=== PATIENT | female | born 1995 | race American Indian/Alaskan Native ===

== ENCOUNTER 2017-03-29 22:03 | Emergency (ER) | payer OTHER ==
[2017-03-29] MEDS ORDERED: TYLENOL PO ONE (22:20)
[2017-03-29] MEDS ORDERED: TYLENOL ONE (22:23)
[2017-03-30 04:48] LABS: HCG Qualitative,Urine Negative (Negative)
[2017-03-30 04:51] LABS: Bilirubin,Urine NEG (Negative); Blood,Urine MOD (Negative); Color,Urine Red (Yellow); Mucus,Urine 1+ /HPF; Nitrite,Urine NEG (Negative); Urobilinogen,Urine < 2.0 mg/dL (<2.0)
[2017-03-30 04:58] LABS: RBC,Urine > 182.0 /HPF (0.0-6.0); WBC,Urine < 1.0 /HPF (0.0-6.0)
--- NOTE | 2017-03-30 10:04 | Emergency Department Report ---
ED Back Pain/Injury HPI - General Chief Complaint: Back Pain/Injury Stated Complaint: BACK PAIN Time Seen by Provider: 03/30/17 08:43 Source: patient, family Limitations: No Limitations - History of Present Illness Initial Comments: Patient here complaining of back pain after lifting heavy object at work. She said the pain is located in her lower back on both sides. She reports that pain is achy and worse with movement better with rest. Denies any history of back problems. Patient says she lifts heavy boxes at work. Denies any urinary burning frequency or urgency. Patient is on her period that she started yesterday. Back pain is 10 out of 10 and a can. Denies any loss of bowel or bladder function. Denies any numbness or tingling to extremities. MD Complaint: back pain, back injury (patient says she has injury from lifting boxes) Onset/Timin -: week(s) Similar Symptoms Previously: No Place: work Radiation: none Severity: severe Severity scale (0 -10): 10 Quality: aching Consistency: constant Improves With: immobilization Worsens With: movement, walking Context: while lifting, bending Associated Symptoms: denies: confusion, weakness, chest pain, numbness, difficulty walking, cough, diaphoresis, incontinence, fever/chills, constipation , headaches, abdominal pain, loss of appetite, nausea/vomiting, rash, seizure, shortness of breath, syncope - Related Data Previous Rx's Medication Instructions Recorded Last Taken Type Cyclobenzaprine [Flexeril] 10 mg PO TID PRN 5 Days #15 tablet 03/30/17 Unknown Rx Ibuprofen [Motrin] 600 mg PO Q8H PRN 5 Days #15 tablet 03/30/17 Unknown Rx Allergies Allergy/AdvReac Type Severity Reaction Status Date / Time No Known Allergies Allergy Verified 02/09/14 16:30 ED Review of Systems ROS: Stated complaint: BACK PAIN Other details as noted in HPI ED Past Medical Hx - Past Medical History Medical history: asthma (childhood asthma) Surgical history: no surgical history Psychiatric history: no pertinent history 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 denies: , post menopausal Family history: no significant family history - Social History Smoking Status: Never Smoker Alcohol use: none Drug use: none ED Back Pain Physical Exam - Exam General: This is a 21-year-old female well-nourished well-developed in no acute distress. Head: Normocephalic, atraumatic, no abrasion, no bruising and no contusion. Eyes: Biateral pupils equal and reactive to light, bilateral EOM intact.. Bilateral conjunctival and sclera without injection, normal accommodation. No nystagmus Neck: Supple, No Cervical adenopathy, full range of motion and no C-spine tenderness. No swelling or tracheal deviation normal reflexes Cardiovascular: S1, S2. Regular rate and rhythm. No murmur. Capillary refill is less then 3 seconds. Lungs: Clear to auscultate bilaterally. No rhonchi, wheezes or rales. No chest wall tenderness. No chest contusion. No bruising to chest. MSK: Strength 5/5 in all extremities. No joint deformity or crepitus. Normal inspection. Full range of motion to all extremities. No laceration, abrasion or ecchymotic area noted. Patient able to fully flex and extend bilateral knees without any difficulties. Bilateral knees nontender to palpate. Abdomen: Non-tender to palpate in all quadrants, no guarding or rebound tenderness, positive bowel sounds in all quadrants. No CVA tenderness. No hernia, bruit or mass. No rigidity or distention. Extremities: No clubbing, cyanosis or edema. +2 pulses. No neurovascular compromise Skin: Clean, dry and intact. No rash or lesions. Neurological: GCS at 15, Pt is alert and oriented 3 speech is clear . Bilateral hand recruitment consultant strong and equal. Normal gait. Negative Romberg and no pronator drift. Normal Reflexes. No motor or sensory deficit Back: No vertebral tenderness, no paraspinal tenderness. The bend over and touch his toes without any difficulties. Ambulates without any difficulties. Negative SLR . Left lumbar spasm. Psych: Normal mood and behavior Back/Abdomen: No Abdominal Tenderness (nontender to palpation in all quadrants, normal bowel sounds in all quadrants. No rigidity or distention. No CVA tenderness.), No Perithoracic Tenderness, No Perilumbar Tenderness (no vertebral tenderness. Patient with spasm to the left lumbar area.), No Sacroiliac Tenderness, No Flank Tenderness, No Straight Leg Raise Pain Neuro: Yes Normal Sensation, Yes Normal Gait, No Motor Weakness, No Normal DTR's ED Course Vital Signs 03/29/17 22:17 Temperature 100.2 F H Pulse Rate 95 H Respiratory 16 Rate Blood Pressure 128/64 O2 Sat by Pulse 96 Oximetry Vital Signs 03/29/17 03/30/17 22:17 10:15 Temperature 100.2 F H 100.1 F H Pulse Rate 95 H 54 L Respiratory 16 16 Rate Blood Pressure 128/64 Blood Pressure 104/55 [Left] O2 Sat by Pulse 96 100 Oximetry - Reevaluation(s) Reevaluation #1: 03/30/17 10:37 Patient given Tylenol 650 mg in triage for back pain. She was given additional Toradol 30 mg IM and Flexeril 10 mg by mouth which relieved her back pain. Ed Back Pain Tests - Tests Tests: Abnormal UA (patient with trace ketone, moderate blood and she is on her period trace leukocyte Estrace otherwise stable. test is negative) ED Medical Decision Making - Lab Data Lab Results 03/30/17 Range/Units Unknown Urine Color Red (Yellow) Urine Turbidity Cloudy (Clear) Urine pH 6.0 (5.0-7.0) Ur Specific [place] 1.017 (1.003-1.030) Urine Protein 100 mg/dl (Negative) mg/dL Urine Glucose (UA) Neg (Negative) mg/dL Urine Ketones Tr (Negative) mg/dL Urine Blood Mod (Negative) Urine Nitrite Neg (Negative) Ur Reducing Substances Not Reportable Urine Bilirubin Neg (Negative) Urine Ictotest Not Reportable Urine Urobilinogen < 2.0 (<2.0) mg/dL Ur Leukocyte Esterase Tr (Negative) Urine WBC (Auto) < 1.0 (0.0-6.0) /HPF Urine RBC (Auto) > 182.0 (0.0-6.0) /HPF Urine Mucus 1+ /HPF Urine HCG, Qual Negative (Negative) Urine culture sent Critical care attestation.: If time is entered above; I have spent that time in minutes in the direct care of this critically ill patient, excluding procedure time. ED Disposition Clinical Impression: Spasm of muscle of lower back Lower back pain Qualifiers: Chronicity: acute Back pain laterality: bilateral Sciatica presence: without sciatica Qualified Code(s): M54.5 - Low back pain Disposition: TO HOME OR SELFCARE Is pt being admited?: No Does the pt Need Aspirin: No Condition: Stable Instructions: Back Pain (ED), Muscle Spasm (ED) Additional Instructions: Please rest for 72 hours If symptoms worsen, return to emergency room otherwise follow-up with orthopedic doctor do not take Flexeril while driving or operating heavy machinery as this medication causes drowsiness Increase your fluid intake Prescriptions: Cyclobenzaprine [Flexeril] 10 mg PO TID PRN 5 Days #15 tablet PRN Reason: Muscle Spasm Ibuprofen [Motrin] 600 mg PO Q8H PRN 5 Days #15 tablet PRN Reason: Pain Referrals: PRIMARY CAREMD [Primary Care Provider] - 3-5 Days MEGAN KAHN MD [Staff Physician] - 3-5 Days Forms: Work/School Release Form(ED)
[2017-03-30] MEDS ORDERED: TORADOL IM ONE (10:05)
[2017-03-30] MEDS ORDERED: FLEXERIL PO ONE (10:05)
[2017-03-30 10:51] VITALS: BP 110/60
== END 2017-03-30 10:49 | disposition home or self-care (01) ==
LOC: ED 22:03
DX: M54.5 Low back pain (principal); M62.830 Muscle spasm of back; X50.9XXA Other and unspecified overexertion or strenuous movements or postures, initial encounter; Y93.89 Activity, other specified; Y99.0 Civilian activity done for income or pay; Y92.69 Other specified industrial and construction area as the place of occurrence of the external cause
CPT/HCPCS: 81001; 81025; 96372; 99283; J1885

== ENCOUNTER 2017-10-16 10:41 | Emergency (ER) | payer SELFPAY ==
[2017-10-16 10:51] VITALS: BP 122/63
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
== END 2017-10-16 13:41 | disposition left against medical advice (07) ==
LOC: ED 10:41
DX: Z20.2 Contact with and (suspected) exposure to infections with a predominantly sexual mode of transmission (principal); Z53.21 Procedure and treatment not carried out due to patient leaving prior to being seen by health care provider
CPT/HCPCS: 99282

== ENCOUNTER 2018-09-16 21:44 | Outpatient (CLI) | payer MEDICAID ==
[2018-09-16 22:03] VITALS: BP 116/57
== END 2018-09-16 22:35 | disposition home or self-care (01) ==
LOC: TRG 21:44
PROVIDERS: ATTEND Obstetrics & Gynecology
DX: O47.1 False labor at or after 37 completed weeks of gestation (principal); O99.513 Diseases of the respiratory system complicating pregnancy, third trimester; J45.909 Unspecified asthma, uncomplicated; Z3A.40 40 weeks gestation of pregnancy
CPT/HCPCS: 59025

== ENCOUNTER 2018-09-19 09:49 | Inpatient (IN) | payer MEDICAID ==
--- NOTE | 2018-09-19 13:51 | Ultrasound Report ---
PROCEDURE: US OB BPP WO NON-STRESS TECHNIQUE: biophysical profile performed. HISTORY: BPP COMPARISON: None FINDINGS: There is a single live intrauterine of approximately 40 weeks 3 days and corresponding MARTIN of 09/16/2018. position is cephalic. Cardiac activity is seen at 141 bpm Biophysical profile tone: 2 Amniotic fluid: 2 breathin movement: 2 Biophysical profile score:8 out of 8 IMPRESSION: Normal biophysical profile scoring 8 out of 8. This document is electronically signed by Gely Marks MD., September 19 2018 01:49:24 PM ET
--- NOTE | 2018-09-19 14:04 | Ultrasound Report ---
PROCEDURE: US OB FOLLOW UP TECHNIQUE: Obstetrical ultrasound performed. HISTORY: vaginal bleeding COMPARISON: None FINDINGS: presentation: Cephalic Placental location: Left lateral. Placenta previa?No. Placental abruption? No Amniotic fluid volume:Normal. MERRILL: 12.7 cm heart rate: 141 bpm measurements: BPD: 8.9 cm-35 weeks 6 days +/- 22 days HC: 31.9 cm-35 weeks 6 days +/- 21 days AC: 35.4 cm-38 weeks 2 days +/- 21 days FL: 0.7 cm-39 weeks 3 days +/- 22 days Average age by ultrasound: 37 weeks 3 days with corresponding MARTIN of 10/07/2018 Clinical gestational age is 40 weeks 3 days according to provided MARTIN of 09/16/2018 Estimated weight: 3347 g (7 lbs. 6 oz.). This is 23rd percentile for gestational age of 40 wee ks 3 days. Survey of anatomy not performed. Note that the cord is seen posterior to the neck of the fetus. Canno t exclude a nuchal cord. Cervical length is 3.1 cm. IMPRESSION: There is a single live intrauterine . Gestational age is 40 weeks 3 days based on provided E DD of 09/16/2018. Estimated weight of 3347 g is 23rd percentile. The head measurements, as above, are small for expected gestational age. They are more than 2 s tandard deviations below the mean. This raises concern for microcephaly. The umbilical cord is seen around the posterior aspect of the neck. I cannot exclude an nuchal cord. This document is electronically signed by Gely Makrs MD., September 19 2018 02:02:51 PM ET
--- NOTE | 2018-09-19 14:18 | History and Physical Report ---
History of Present Illness Date of examination: 09/19/18 Date of admission: 09/19/2018 Chief complaint: Contractions History of present illness: 23 year old female presents to L&D complaining of contractions and light vaginal bleeding since she had IC last night. Patient denies leaking of fluid. She states she has had some light vaginal bleeding since having IC last night. Patient reports active movement. Patient received care at [facility] [employer] and records are available. LMP 12/10/2017. EDC 09/16/2018. significant for the following: asthma (on Ventolin, was referre to [facility] and neurology); obesity; anemia (supplemented with oral iron); trichomonas (treated with Flagyl, then Tindamax); HPV +; EIF (co-managed with [facility]); GBS positive. labs are as follows: O+, antibody screen negative, rubella immune, RPR nonreactive, hepatitis B surface antigen negative, HIV negative, GC negative, CT negative, trichomonas positive/negative, quad screen negative, 1 hour sugar test 77, GBS positive. 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 denies: abnormal PAP smear, chlamydia, gonorrhea, hepatitis B, hepatitis C, herpes, HIV, syphilis Family/Genetic History: diabetes, heart disease Social history: single, lives with family, full code. denies: smoking, alcohol abuse, prescription drug abuse, IV drug use - Obstetrical History Expected Date of Delivery: 09/16/18 Actual Gestation: 40 Week(s) 3 Day(s) : 2 Para: 1 Hx # Term Pregnancies: 0 Number of Pregnancies: 0 Spontaneous Abortions: 0 Induced : 0 Number of Living Children: 1 Medications and Allergies Allergies Allergy/AdvReac Type Severity Reaction Status Date / Time No Known Allergies Allergy Verified 02/09/14 16:30 Home Medications Medication Instructions Recorded Confirmed Last Taken Type Albuterol Sulfate [Albuterol 0.63% 0.63 mg IH TID PRN #270 ml 02/12/18 09/16/18 4 Days Ago Rx NEBS] ~09/12/18 Ferrous Sulfate [Feosol 325 MG tab] 1 tab PO QDAY 09/16/18 09/16/18 09/16/18 History Vit-Fe Fumar-FA [ 1 tab PO QDAY 09/16/18 09/16/18 09/16/18 History Vitamin] Active Meds: Active Medications Ephedrine Sulfate (Ephedrine Sulfate) 10 mg IV Q2M PRN PRN Reason: Hypotension Fentanyl (Sublimaze) 100 mcg IV Q2H PRN PRN Reason: Labor Pain Oxytocin/Sodium Chloride (Pitocin/Ns 20 Unit/1000ml Drip) 20 units in 1,000 mls @ 125 mls/hr IV DIRECT EZIO Lactated Ringer's (Lactated Ringers) 1,000 mls @ 125 mls/hr IV DIRECT EZIO Ampicillin Sodium (Ampicillin/Ns 2 Gm/100 Ml) 2 gm in 100 mls @ 100 mls/hr IV ONCE ONE; Protocol Stop: 09/19/18 15:06 Ampicillin Sodium (Ampicillin/Ns 1 Gm/50 Ml) 1 gm in 50 mls @ 100 mls/hr IV Q4HR EZIO; Protocol Lidocaine (Xylocaine 2%) 20 ml INFILTRATI ONCE ONE Stop: 09/19/18 14:08 Terbutaline Sulfate (Brethine) 0.25 mg SUB-Q ONCE PRN PRN Reason: Hyperstimulation/Hypertonicity Review of Systems All systems: negative (contractions) - Vital Signs Vital signs: Vital Signs Pulse BP 85 125/65 09/19/18 09:57 09/19/18 09:57 Temp Pulse Resp BP Pulse Ox 85 125/65 09/19/18 09:57 09/19/18 09:57 US shows no sign of abruption or previa. EFW 3347 grams. Possible nuchal cord noted on US report. - Physical Exam Cardiovascular: Regular rate, Normal S1, Normal S2 Lungs: Positive: Clear to auscultation Abdomen: Positive: normal appearance, soft. Negative: distention, tenderness, guarding, rigidity Genitourinary (Female): Positive: normal external genitalia, normal perenium. Negative: perineal/vulvar lesions Vagina: Positive: normal moisture Uterus: Positive: enlarged Anus/Rectum: Positive: normal perianal skin Extremities: Positive: normal. Negative: tenderness - Obstetrical FHR: category 1 Uterine Contraction Monitor Mode: External Cervical Dilatation: 5 Cervical Effacement Percentage: 50 station: -4 Uterine Contraction Pattern: Regular Uterine Contraction Intensity: Mild Results All other labs normal. Assessment and Plan A: at 40 weeks, 3 days gestation. Labor. GBS positive. Obesity. P: Admit. Continuous EFM. GBS prophylaxis. Anticipate vaginal .
[2018-09-19] MEDS ORDERED: PITOCin/NS 20 UNIT/1000ML DRIP 20 UNITS/1,000 ML BAG IV SCH (15:00)
[2018-09-19] MEDS ORDERED: XYLOCAINE 2% INFILTRATI ONE (15:00)
[2018-09-19] MEDS ORDERED: BRETHINE SUB-Q PRN (15:00)
[2018-09-19] MEDS ORDERED: AMPICILLIN/NS 2 GM/100 ML 2 GM/100 ML BAG IV ONE (15:00)
[2018-09-19] MEDS: LACTATED RINGERS 1,000 ML IV SCH (15:10)
[2018-09-19] MEDS ORDERED: ZITHROMAX PO SCH (16:00)
[2018-09-19] MEDS ORDERED: ZITHROMAX PO ONE (16:00)
[2018-09-19] MEDS: SUBLIMAZE IV PRN ×2 (16:00→22:09)
[2018-09-19 16:08] LABS: Hematocrit 42.5 % (30.3-42.9); Hemoglobin 14.5 gm/dl (10.1-14.3); Mean Corpuscular HGB Conc 34 % (30-34); Mean Corpuscular Volume 97 fl (79-97); Red Blood Count 4.37 M/mm3 (3.65-5.03); Red Cell Distribution Width 12.9 % (13.2-15.2)
[2018-09-19 16:50] LABS: Platelet Count 162 K/mm3 (140-440)
[2018-09-19] MEDS: AMPICILLIN/NS 1 GM/50 ML 1 GM/50 ML BAG IV SCH ×2 (18:11→22:09)
[2018-09-20] MEDS: LACTATED RINGERS 1,000 ML IV SCH ×3 (00:31→03:38)
--- NOTE | 2018-09-20 00:36 | Event Note ---
Date: 09/20/18 SVE /-3. Will start Pitocin augmentation of labor. Discussed with patient risks and benefits of Pitocin augmentation of labor. Patient consented to Pitocin augmentation of labor.
[2018-09-20] MEDS ORDERED: PITOCin/NS 30 UNIT/500ML 30 UNITS/500 ML BAG IV SCH (01:00)
[2018-09-20] MEDS ORDERED: NARCAN 2 MG/2 ML IV PRN (02:20)
[2018-09-20] MEDS ORDERED: fentaNYL-BUPIV 2 MCG/ML-0.125% 200 MCG/100 ML BAG EPIDURAL SCH (03:00)
--- NOTE | 2018-09-20 03:21 | Anesthesia Consultation ---
Anesthesia Consult and Med Hx Date of service: 09/20/18 - Airway Anesthetic Teeth Evaluation: Good ROM Head & Neck: Adequate Mental/Hyoid Distance: Adequate Mallampati Class: Class I Intubation Access Assessment: Probably Good - Pulmonary Exam CTA: Yes - Cardiac Exam Cardiac Exam: RRR - Pre-Operative Health Status ASA Pre-Surgery Classification: ASA3 Proposed Anesthetic Plan: Epidural - Pulmonary Hx Asthma: Yes COPD: No Hx Pneumonia: No - Cardiovascular System Hx Hypertension: No - Central Nervous System Hx Seizures: No Hx Psychiatric Problems: No - Endocrine Hx Renal Disease: No Hx End Stage Renal Disease: No Hx Hypothyroidism: No Hx Hyperthyroidism: No - Hematic Hx Anemia: Yes Hx Sickle Cell Disease: No - Other Systems Hx Alcohol Use: No
--- NOTE | 2018-09-20 03:22 | Anesthesia Day of Surgery ---
Anesthesia Day of Surgery - Day of Surgery Patient Examined: Yes Patient H&P Reviewed: Yes
[2018-09-20] MEDS ORDERED: XYLOCAINE MPF 2% ONE (03:43)
[2018-09-20] MEDS: AMPICILLIN/NS 1 GM/50 ML 1 GM/50 ML BAG IV SCH ×2 (03:58→08:28)
--- NOTE | 2018-09-20 08:55 | Progress Note ---
Assessment and Plan - Patient Problems (1) 40 weeks gestation of Current Visit: Yes Status: Acute (2) Active labor at term Current Visit: Yes Status: Acute Plan to address problem: Continue current management AROM @ 8:47am, meconium, moderate fluid FSE applied Anticipate vaginal delivery Subjective - Subjective Date of service: 09/20/18 Principal diagnosis: IUP @ 40 weeks, Active Labor Interval history: see H&P and event note Patient reports: vaginal bleeding, movement normal, contractions, other (epidural in place), no loss of fluid Objective - Vital Signs Vital Signs: Vital Signs - 12hr 09/19/18 09/19/18 09/19/18 21:26 22:00 22:26 Temperature 98.6 F Pulse Rate 88 79 90 Respiratory 18 Rate Blood Pressure 115/72 122/59 Blood Pressure 104/55 [Right] O2 Sat by Pulse 96 Oximetry 09/19/18 09/20/18 09/20/18 23:25 00:25 00:30 Temperature Pulse Rate 77 88 83 Respiratory Rate Blood Pressure 113/53 112/58 Blood Pressure [Right] O2 Sat by Pulse 0 L Oximetry 09/20/18 09/20/18 09/20/18 00:31 00:34 00:40 Temperature 98.0 F Pulse Rate 81 82 Respiratory 18 Rate Blood Pressure Blood Pressure [Right] O2 Sat by Pulse 99 98 Oximetry 09/20/18 09/20/18 09/20/18 00:45 00:50 00:54 Temperature Pulse Rate 74 71 77 Respiratory Rate Blood Pressure Blood Pressure [Right] O2 Sat by Pulse 98 99 99 Oximetry 09/20/18 09/20/18 09/20/18 01:00 01:05 01:09 Temperature Pulse Rate 75 75 72 Respiratory Rate Blood Pressure 107/52 Blood Pressure [Right] O2 Sat by Pulse 99 99 100 Oximetry 09/20/18 09/20/18 09/20/18 01:15 01:19 01:24 Temperature Pulse Rate 77 72 70 Respiratory Rate Blood Pressure Blood Pressure [Right] O2 Sat by Pulse 99 99 98 Oximetry 09/20/18 09/20/18 09/20/18 01:30 01:35 01:38 Temperature 97.8 F Pulse Rate 78 75 Respiratory 20 Rate Blood Pressure Blood Pressure [Right] O2 Sat by Pulse 99 98 Oximetry 09/20/18 09/20/18 09/20/18 01:40 01:41 01:45 Temperature Pulse Rate 83 76 70 Respiratory Rate Blood Pressure 129/65 Blood Pressure [Right] O2 Sat by Pulse 99 100 Oximetry 09/20/18 09/20/18 09/20/18 01:50 01:55 02:00 Temperature Pulse Rate 71 72 72 Respiratory Rate Blood Pressure Blood Pressure [Right] O2 Sat by Pulse 99 99 100 Oximetry 09/20/18 09/20/18 09/20/18 02:05 02:10 02:15 Temperature Pulse Rate 74 72 69 Respiratory Rate Blood Pressure 120/64 Blood Pressure [Right] O2 Sat by Pulse 100 100 100 Oximetry 09/20/18 09/20/18 09/20/18 02:20 02:25 02:30 Temperature Pulse Rate 71 84 87 Respiratory Rate Blood Pressure 121/61 Blood Pressure [Right] O2 Sat by Pulse 100 99 100 Oximetry 09/20/18 09/20/18 09/20/18 02:32 02:35 02:36 Temperature Pulse Rate 91 H 81 80 Respiratory Rate Blood Pressure 120/56 116/66 Blood Pressure [Right] O2 Sat by Pulse 100 Oximetry 09/20/18 09/20/18 09/20/18 02:40 02:44 02:45 Temperature Pulse Rate 88 91 H 89 Respiratory Rate Blood Pressure 119/65 120/58 Blood Pressure [Right] O2 Sat by Pulse 99 99 Oximetry 09/20/18 09/20/18 09/20/18 02:46 02:48 02:50 Temperature Pulse Rate 76 81 91 H Respiratory Rate Blood Pressure 117/58 117/56 112/57 Blood Pressure [Right] O2 Sat by Pulse 99 Oximetry 09/20/18 09/20/18 09/20/18 02:52 02:54 02:55 Temperature Pulse Rate 73 72 72 Respiratory Rate Blood Pressure 111/54 101/51 Blood Pressure [Right] O2 Sat by Pulse 100 Oximetry 09/20/18 09/20/18 09/20/18 02:56 02:58 02:59 Temperature Pulse Rate 75 71 74 Respiratory Rate Blood Pressure 99/47 97/48 Blood Pressure [Right] O2 Sat by Pulse 100 Oximetry 09/20/18 09/20/18 09/20/18 03:00 03:02 03:04 Temperature Pulse Rate 74 70 69 Respiratory Rate Blood Pressure 95/46 93/46 92/46 Blood Pressure [Right] O2 Sat by Pulse Oximetry 09/20/18 09/20/18 09/20/18 03:05 03:06 03:08 Temperature Pulse Rate 73 75 71 Respiratory Rate Blood Pressure 98/53 93/58 Blood Pressure [Right] O2 Sat by Pulse 80 L Oximetry 09/20/18 09/20/18 09/20/18 03:10 03:11 03:14 Temperature Pulse Rate 71 70 65 Respiratory Rate Blood Pressure 110/53 91/55 Blood Pressure [Right] O2 Sat by Pulse 100 Oximetry 09/20/18 09/20/18 09/20/18 03:15 03:16 03:18 Temperature Pulse Rate 69 68 71 Respiratory Rate Blood Pressure 100/53 105/54 Blood Pressure [Right] O2 Sat by Pulse 100 Oximetry 09/20/18 09/20/18 09/20/18 03:20 03:23 03:25 Temperature Pulse Rate 68 71 75 Respiratory Rate Blood Pressure 112/57 78/52 112/55 Blood Pressure [Right] O2 Sat by Pulse 100 100 Oximetry 09/20/18 09/20/18 09/20/18 03:26 03:28 03:30 Temperature Pulse Rate 73 72 68 Respiratory Rate Blood Pressure 101/53 103/57 102/54 Blood Pressure [Right] O2 Sat by Pulse 100 Oximetry 09/20/18 09/20/18 09/20/18 03:32 03:34 03:35 Temperature Pulse Rate 70 68 69 Respiratory Rate Blood Pressure 100/55 104/53 Blood Pressure [Right] O2 Sat by Pulse 100 Oximetry 09/20/18 09/20/18 09/20/18 03:36 03:38 03:40 Temperature Pulse Rate 70 69 73 Respiratory Rate Blood Pressure 109/59 106/54 111/56 Blood Pressure [Right] O2 Sat by Pulse 100 Oximetry 09/20/18 09/20/18 09/20/18 03:45 03:50 03:51 Temperature Pulse Rate 70 69 69 Respiratory Rate Blood Pressure Blood Pressure [Right] O2 Sat by Pulse 100 96 93 Oximetry 09/20/18 09/20/18 09/20/18 03:55 03:57 04:00 Temperature Pulse Rate 69 72 83 Respiratory Rate Blood Pressure 128/67 Blood Pressure [Right] O2 Sat by Pulse 98 98 Oximetry 09/20/18 09/20/18 09/20/18 04:05 04:10 04:12 Temperature Pulse Rate 74 77 77 Respiratory Rate Blood Pressure 100/52 Blood Pressure [Right] O2 Sat by Pulse 97 97 Oximetry 09/20/18 09/20/18 09/20/18 04:15 04:20 04:22 Temperature Pulse Rate 80 81 76 Respiratory Rate Blood Pressure Blood Pressure [Right] O2 Sat by Pulse 97 96 94 Oximetry 09/20/18 09/20/18 09/20/18 04:25 04:27 04:30 Temperature Pulse Rate 78 77 85 Respiratory Rate Blood Pressure 103/53 Blood Pressure [Right] O2 Sat by Pulse 96 96 Oximetry 09/20/18 09/20/18 09/20/18 04:31 04:35 04:40 Temperature Pulse Rate 76 83 74 Respiratory Rate Blood Pressure Blood Pressure [Right] O2 Sat by Pulse 94 96 99 Oximetry 09/20/18 09/20/18 09/20/18 04:43 04:45 04:50 Temperature Pulse Rate 73 75 78 Respiratory Rate Blood Pressure 103/51 Blood Pressure [Right] O2 Sat by Pulse 99 98 Oximetry 09/20/18 09/20/18 09/20/18 04:55 04:57 05:00 Temperature 97.9 F Pulse Rate 76 82 81 Respiratory 18 Rate Blood Pressure 90/51 Blood Pressure [Right] O2 Sat by Pulse 98 98 Oximetry 09/20/18 09/20/18 09/20/18 05:01 05:05 05:10 Temperature Pulse Rate 78 83 73 Respiratory Rate Blood Pressure 93/51 Blood Pressure [Right] O2 Sat by Pulse 98 98 Oximetry 09/20/18 09/20/18 09/20/18 05:11 05:15 05:16 Temperature Pulse Rate 86 84 91 H Respiratory Rate Blood Pressure 68/31 68/36 Blood Pressure [Right] O2 Sat by Pulse 98 Oximetry 09/20/18 09/20/18 09/20/18 05:20 05:22 05:25 Temperature Pulse Rate 81 77 81 Respiratory Rate Blood Pressure 100/53 95/52 95/47 Blood Pressure [Right] O2 Sat by Pulse 99 99 Oximetry 09/20/18 09/20/18 09/20/18 05:28 05:30 05:32 Temperature Pulse Rate 77 88 74 Respiratory Rate Blood Pressure 90/45 82/43 89/50 Blood Pressure [Right] O2 Sat by Pulse 99 Oximetry 09/20/18 09/20/18 09/20/18 05:34 05:35 05:36 Temperature Pulse Rate 83 76 86 Respiratory Rate Blood Pressure 87/50 91/46 Blood Pressure [Right] O2 Sat by Pulse 99 Oximetry 09/20/18 09/20/18 09/20/18 05:38 05:40 05:42 Temperature Pulse Rate 107 H 102 H 91 H Respiratory Rate Blood Pressure 90/48 69/34 69/34 Blood Pressure [Right] O2 Sat by Pulse 99 Oximetry 09/20/18 09/20/18 09/20/18 05:44 05:45 05:46 Temperature Pulse Rate 111 H 90 91 H Respiratory Rate Blood Pressure 68/32 100/53 Blood Pressure [Right] O2 Sat by Pulse 99 Oximetry 09/20/18 09/20/18 09/20/18 05:48 05:50 05:52 Temperature Pulse Rate 100 H 101 H 109 H Respiratory Rate Blood Pressure 91/51 80/44 78/40 Blood Pressure [Right] O2 Sat by Pulse 99 Oximetry 09/20/18 09/20/18 09/20/18 05:54 05:55 05:56 Temperature Pulse Rate 101 H 115 H 71 Respiratory Rate Blood Pressure 104/46 101/50 Blood Pressure [Right] O2 Sat by Pulse 100 Oximetry 09/20/18 09/20/18 09/20/18 05:58 06:00 06:05 Temperature Pulse Rate 70 72 79 Respiratory Rate Blood Pressure 102/56 99/53 Blood Pressure [Right] O2 Sat by Pulse 99 99 Oximetry 09/20/18 09/20/18 09/20/18 06:10 06:15 06:17 Temperature Pulse Rate 106 H 95 H 78 Respiratory Rate Blood Pressure 81/42 Blood Pressure [Right] O2 Sat by Pulse 99 100 Oximetry 09/20/18 09/20/18 09/20/18 06:20 06:25 06:28 Temperature Pulse Rate 75 71 86 Respiratory Rate Blood Pressure 89/54 Blood Pressure [Right] O2 Sat by Pulse 100 100 Oximetry 09/20/18 09/20/18 09/20/18 06:30 06:32 06:34 Temperature Pulse Rate 75 71 70 Respiratory Rate Blood Pressure 132/62 130/60 Blood Pressure [Right] O2 Sat by Pulse 100 Oximetry 09/20/18 09/20/18 09/20/18 06:35 06:36 06:38 Temperature Pulse Rate 69 76 72 Respiratory Rate Blood Pressure 130/60 128/60 Blood Pressure [Right] O2 Sat by Pulse 100 Oximetry 09/20/18 09/20/18 09/20/18 06:40 06:42 06:45 Temperature Pulse Rate 80 75 76 Respiratory Rate Blood Pressure 134/66 127/62 Blood Pressure [Right] O2 Sat by Pulse 100 99 Oximetry 09/20/18 09/20/18 09/20/18 06:50 06:55 06:58 Temperature Pulse Rate 86 82 75 Respiratory Rate Blood Pressure 125/62 Blood Pressure [Right] O2 Sat by Pulse 99 99 Oximetry 09/20/18 09/20/18 09/20/18 07:00 07:05 07:10 Temperature Pulse Rate 78 90 75 Respiratory Rate Blood Pressure Blood Pressure [Right] O2 Sat by Pulse 99 99 100 Oximetry 09/20/18 09/20/18 09/20/18 07:12 07:15 07:17 Temperature 97.5 F L Pulse Rate 83 78 Respiratory 24 Rate Blood Pressure 128/62 Blood Pressure [Right] O2 Sat by Pulse 100 100 Oximetry 09/20/18 09/20/18 09/20/18 07:20 07:25 07:28 Temperature Pulse Rate 78 82 75 Respiratory Rate Blood Pressure 126/64 Blood Pressure [Right] O2 Sat by Pulse 100 100 Oximetry 09/20/18 09/20/18 09/20/18 07:30 07:35 07:40 Temperature Pulse Rate 80 108 H 83 Respiratory Rate Blood Pressure Blood Pressure [Right] O2 Sat by Pulse 99 100 100 Oximetry 09/20/18 09/20/18 09/20/18 07:43 07:45 07:50 Temperature Pulse Rate 80 80 86 Respiratory Rate Blood Pressure 118/63 Blood Pressure [Right] O2 Sat by Pulse 100 99 Oximetry 09/20/18 09/20/18 09/20/18 07:55 07:58 08:00 Temperature Pulse Rate 101 H 77 91 H Respiratory Rate Blood Pressure 106/55 Blood Pressure [Right] O2 Sat by Pulse 100 100 Oximetry 09/20/18 09/20/18 09/20/18 08:05 08:10 08:12 Temperature Pulse Rate 79 93 H 79 Respiratory Rate Blood Pressure 105/56 Blood Pressure [Right] O2 Sat by Pulse 100 100 Oximetry 09/20/18 09/20/18 09/20/18 08:15 08:20 08:23 Temperature Pulse Rate 77 81 97 H Respiratory Rate Blood Pressure 119/67 Blood Pressure [Right] O2 Sat by Pulse 100 100 Oximetry 09/20/18 09/20/18 09/20/18 08:25 08:28 08:30 Temperature Pulse Rate 77 78 91 H Respiratory Rate Blood Pressure 134/78 Blood Pressure [Right] O2 Sat by Pulse 100 100 Oximetry 09/20/18 09/20/18 09/20/18 08:35 08:40 08:43 Temperature Pulse Rate 79 83 104 H Respiratory Rate Blood Pressure 123/68 Blood Pressure [Right] O2 Sat by Pulse 99 99 Oximetry 09/20/18 09/20/18 08:45 08:50 Temperature Pulse Rate 93 H 79 Respiratory Rate Blood Pressure Blood Pressure [Right] O2 Sat by Pulse 100 99 Oximetry - Exam FHR: category 2 FHR comments: baseline 150, moderate variability, 15x15 accels, periodic variable decels. Cervical Dilatation: 9 Cervical Effacement Percentage: 90 station: -1 Uterine Contraction Pattern: Regular - Labs Labs: Abnormal Labs 09/19/18 15:15 Hgb 14.5 H MCH 33 H RDW 12.9 L Laboratory Results - last 24 hr 09/19/18 09/19/18 15:15 15:51 WBC 9.1 RBC 4.37 Hgb 14.5 H Hct 42.5 MCV 97 MCH 33 H MCHC 34 RDW 12.9 L Plt Count 162 Blood Type O POSITIVE Antibody Screen Negative
[2018-09-20] MEDS ORDERED: CYTOTEC PR ONE (09:58)
[2018-09-20] MEDS ORDERED: CYTOTEC ONE (09:58)
[2018-09-20] MEDS ORDERED: METHERGINE IM ONE ×2 (10:00)
--- NOTE | 2018-09-20 10:26 | Procedure Note ---
OB Delivery Note - Delivery Date of Delivery: 09/20/18 (09:48) Surgeon: JENNIFER DUNCAN (CNM) Estimated blood loss: other (600cc) - Vaginal Delivery presentation: vertex Delivery position: OA Intrapartum events: meconium, mult.variable deceleratio, hemorrhage (managed with fundal & bimanual massage prior to initiating IV Pitocin bolus due to problems with IV line, Cytotec 800mcg IA & Methergine 0.2mg IM x1 ), shoulder dystocia (resolved in less than 1 min with suprapubic pressure) Delivery induction: none Delivery augmentation: rupture of membranes, pitocin Delivery monitor: external FHT, external uterine, internal FHT Route of delivery: (09:48) Delivery placenta: spontaneous (09:54) Delivery cord: nuchal cord (x1, loose. Reduced prior to delivery) Episiotomy: none Delivery laceration: none Anesthesia: epidural Delivery comments: of a less vigorous 8 lbs 3 oz female on 09/20/18 @ 09:48 with NICU team at bedside. After delivery of head, nuchal cord x1 noted & reduced. Shoulder dystocia called & reduced in less than 1 min with suprapubic pressure. Umbilical cord double-clamped, cut and baby handed to NICU team personnel. Cord gases and cord blood collected. Spontaneous delivery of placenta, Bharti-side presenting @ 09:54. Heavy lochia noted. Fundal massage initiated. Verbal order to initiate IV Pitocin bolus given but delayed due to problems with IV line. Uterine atony noted. Esqueda catheter removed just prior to delivery of baby. Bimanual massage initiated and verbal order given for Cytotec 800 mcg IA; was administered by me. Heavy bleeding persisting. Verbal order given for Methergine 0.2mg IM x1; administered by Nora VALLEJO. IV Pitocin bolus in progress. Fundus F/ML/U-1. No l acerations present. Perineum intact. Multiple clots manually expressed. Patient denies dizziness, lightheadedness or palpitations. Placenta sent to pathology. BP stable. Mom and baby in stable condition. - A at 1 minute: 8 at 5 minutes: 9 Infant Gender: Female (8 lbs 3 oz (3718 gm); 19.5 in)
[2018-09-20] MEDS ORDERED: TYLENOL PO PRN (10:29)
[2018-09-20] MEDS ORDERED: PHENERGAN PR PRN (10:29)
[2018-09-20] MEDS ORDERED: PHENERGAN PO PRN (10:29)
[2018-09-20] MEDS ORDERED: TUCKS PAD TP PRN (10:29)
[2018-09-20] MEDS ORDERED: LANSINOH TP PRN (10:29)
[2018-09-20] MEDS ORDERED: MILK OF MAGNESIA PO PRN (10:29)
[2018-09-20] MEDS ORDERED: ZOFRAN IV PRN (10:29)
[2018-09-20] MEDS ORDERED: DULCOLAX PR PRN (10:29)
[2018-09-20] MEDS ORDERED: BENADRYL PO PRN (10:29)
[2018-09-20] MEDS ORDERED: SODIUM CHLORIDE FLUSH SYRINGE 10 ML IV NR (11:00)
[2018-09-20] MEDS: IBUPROFEN PO SCH (19:47)
[2018-09-21] MEDS: FEOSOL PO SCH ×2 (00:02→11:16)
[2018-09-21] MEDS: IBUPROFEN PO SCH ×4 (01:21→17:00)
[2018-09-21] MEDS: NORCO 5/325 PO PRN ×2 (05:05→20:40)
[2018-09-21 06:25] LABS: Hemoglobin 10.5 gm/dl (10.1-14.3)
--- NOTE | 2018-09-21 11:48 | Progress Note ---
Assessment and Plan - Patient Problems (1) (normal spontaneous vaginal delivery) Current Visit: Yes Status: Acute Plan to address problem: Continue routine PP orders Anticipate d/c home in 24 hrs (2) Anemia Current Visit: Yes Status: Acute Qualifiers: Anemia type: other cause Other causes of anemia: acute posthemorrhagic Qualified Code(s): D62 - Acute posthemorrhagic anemia Plan to address problem: Asymptomatic Ferrous sulfate po BID Subjective - Subjective Date of service: 09/21/18 Principal diagnosis: IUP @ 40 weeks, Active Labor Interval history: See admission H & P and OB delivery summary Patient reports: appetite normal, voiding normally, pain well controlled, flatus, ambulating normally, no bowel movement [place]: doing well, bottle feeding (and ) Objective - Vital Signs Latest vital signs: Vital Signs Temp Pulse Resp BP BP Pulse Ox 09/21/18 08:31 97.6 F 90 20 107/65 99 09/21/18 05:05 18 09/20/18 23:59 98.1 F 111 H 20 117/61 98 09/20/18 19:36 98.3 F 120 H 20 123/62 97 09/20/18 13:00 98.7 F 76 20 118/51 09/20/18 12:50 98.2 F 24 09/20/18 11:58 89 122/66 Intake and Output 09/20/18 09/21/18 09/21/18 23:59 07:59 15:59 Intake Total 240 360 Output Total 1300 Balance -1060 360 Intake: Oral 240 360 Output: Urine 1300 Void 1300 Other: Total, Intake Amount 240 360 Total, Output Amount 400 # Voids Void 1 2 - Exam Breasts: Present: normal Cardiovascular: Present: Regular rate Lungs: Present: Normal air movement Abdomen: Present: soft, normal bowel sounds Uterus: Present: firm, fundal height below umbilicus (U-1) Extremities: Present: normal Deep Tendon Reflex Grade: Normal +2 - Labs Labs: Abnormal lab results 09/20/18 09/20/18 09/21/18 Range/Units 10:14 10:19 06:09 Hct 30.0 L D (30.3-42.9) % POC ABG pO2 < 50 L < 50 L (80-105)
[2018-09-21] MEDS: PRENATAL VITAMIN PO SCH (17:17)
[2018-09-22] MEDS: IBUPROFEN PO SCH ×2 (00:25→05:03)
[2018-09-22] MEDS: FEOSOL PO SCH ×2 (00:25→10:07)
[2018-09-22] MEDS: NORCO 5/325 PO PRN (10:07)
[2018-09-22] MEDS: PRENATAL VITAMIN PO SCH (10:07)
[2018-09-22 10:34] VITALS: BP 112/67
--- NOTE | 2018-09-22 11:34 | Progress Note ---
Assessment and Plan A: PP Day #2 Asymptomatic Anemia P: Follow Routine Orders Continue FeSO4 as ordered D/C Home today RTO in 6 weeks Subjective - Subjective Date of service: 09/22/18 Principal diagnosis: IUP @ 40 weeks, Active Labor Patient reports: appetite normal, voiding normally, pain well controlled, flatus, ambulating normally [place]: doing well, bottle feeding Objective - Vital Signs Latest vital signs: Vital Signs Temp Pulse Resp BP BP Pulse Ox 09/22/18 09:50 98.1 F 79 20 112/67 09/21/18 23:18 98.0 F 77 20 108/52 98 09/21/18 20:40 18 09/21/18 17:02 98.1 F 80 16 105/62 99 Intake and Output 09/21/18 09/22/18 09/22/18 22:59 06:59 14:59 Intake Total 240 120 120 Balance 240 120 120 Intake: Oral 240 120 120 Other: Total, Intake Amount 240 120 120 # Voids Void 1 1 1 - Exam Breasts: Present: normal Cardiovascular: Present: Regular rate Lungs: Present: Clear to auscultation, Normal air movement Abdomen: Present: normal appearance, soft, normal bowel sounds Uterus: Present: normal, firm, fundal height below umbilicus Extremities: Present: normal
--- NOTE | 2018-09-22 11:36 | Discharge Summary ---
Providers - Providers Date of Admission: 09/19/18 14:59 Date of discharge: 09/22/18 Attending physician: AKBAR GAMBOA MD Primary care physician: [employer] Hospitalization Reason for admission: active labor Delivery: Episiotomy: none Laceration: none Other procedures: none complications: none Discharge diagnosis: IUP at term delivered baby: female Condition at discharge: Good Disposition: DC-01 TO HOME OR SELFCARE Plan - Provider Discharge Summary Activity: routine, no sex for 6 weeks, no heavy lifting 4 weeks, no strenuous exercise Diet: routine Instructions: routine Additional instructions: [] Smoking cessation referral if applicable(refer to patient education folder for contact #) [] Refer to [facility] Booklet Call your doctor immediately for: * Fever > 100.5 * Heavy vaginal bleeding ( >1 pad per hour) * Severe persistent headache * Shortness of breath * Reddened, hot, painful area to leg or breast * Drainage or odor from incision. * Keep incision clean and dry at all times and follow doctor's instructions regarding bathing/showering - Follow up plan Follow up: PRIMARY CAREMD [Primary Care Provider] - 6 Weeks Forms: [facility] Discharge Summary
== END 2018-09-22 11:40 | disposition home or self-care (01) | DRG 774 ==
LOC: TRG 09:49 → LD 14:59 → OB 09-20 13:50
PROVIDERS: ADMIT Obstetrics & Gynecology; ATTEND Obstetrics & Gynecology
PROC: 10E0XZZ Delivery of Products of Conception, External Approach (ICD-10-PCS; principal; 2018-09-20)
PROC: 3E0R3BZ Introduction of Anesthetic Agent into Spinal Canal, Percutaneous Approach (ICD-10-PCS; 2018-09-20)
PROC: 00HU33Z Insertion of Infusion Device into Spinal Canal, Percutaneous Approach (ICD-10-PCS; 2018-09-20)
PROC: 4A033R1 Measurement of Arterial Saturation, Peripheral, Percutaneous Approach (ICD-10-PCS; 2018-09-20)
DX: O99.824 Streptococcus B carrier state complicating childbirth (principal); O72.1 Other immediate postpartum hemorrhage; O99.214 Obesity complicating childbirth; O77.0 Labor and delivery complicated by meconium in amniotic fluid; O66.0 Obstructed labor due to shoulder dystocia; O76 Abnormality in fetal heart rate and rhythm complicating labor and delivery; O69.81X0 Labor and delivery complicated by cord around neck, without compression, not applicable or unspecified; Z3A.40 40 weeks gestation of pregnancy; Z37.0 Single live birth; Z83.3 Family history of diabetes mellitus; Z82.49 Family history of ischemic heart disease and other diseases of the circulatory system
CPT/HCPCS: 36415; 59025; 76816; 76819; 82803; 85014; 85018; 85027; 86592; 86850; 86900; 86901; 88307; G0378; A6250; J0290; J2210; J2590; J3010; J7120